=== PATIENT | female | born 1995 | race Caucasian/White ===

== ENCOUNTER 2016-09-05 06:38 | Emergency (ER) | payer OTHER ==
[~2016-09-05] VITALS: Ht 167.6 cm; Wt 73.5 kg
[2016-09-05 06:40] VITALS: Ht 167.6 cm; Wt 73.5 kg
[2016-09-05] MEDS ORDERED: IBUPROFEN 600 MG TAB PO ONE (07:00)
--- NOTE | 2016-09-05 07:53 | RADRPT ---
PROCEDURE: RIGHT ANKLE - 3 VIEWS CLINICAL INDICATION: 20-year-old female with right ankle pain. TECHNIQUE: AP, oblique and lateral views of the right ankle were performed. The images reviewed on a PACS workstation. COMPARISON: None. FINDINGS: The bones of the ankle appear intact, with no evidence of fracture, dislocation, or subluxation. The joint spaces are preserved. The mortise appears intact. Bone mineralization is within normal limits . IMPRESSION: Unremarkable right ankle radiographs. .Sam Clark MD, Date Time Electronically viewed and signed by .Sam Clark MD, on 09/05/2016 07:53 .M/
[2016-09-05] MEDS ORDERED: IBUP-1542 PO (07:57)
--- NOTE | 2016-09-05 08:00 | ERD ---
ER Documentation Chief Complaint Date/Time DATE: 09/05/16 TIME: 07:58 Chief Complaint Complains of right ankle pain cause unknown HPI This 20-year-old female complains of pain in her right Achilles area for last few days. She awoke with the pain. Denies history of trauma and does not play sports. She is no restricted range of motion weakness set mildly due to pain per ROS All systems reviewed and are negative except as per history of present illness. Medications Home Meds Active Scripts Ibuprofen* (Motrin*) 600 Mg Tab, 600 MG PO Q6, #20 TAB Prov:JOCELYN WILSON MD 09/05/16 Reported Medications [None] No Conflict Check 06/05/11 Allergies Allergies: Coded Allergies: No Known Drug Allergy (Verified Allergy, Unknown, 09/29/12) PMhx/Soc History of Surgery: No Anesthesia Reaction: No Hx Neurological Disorder: No Hx Respiratory Disorders: No Hx Cardiac Disorders: No Hx Psychiatric Problems: No Hx Miscellaneous Medical Probl: No Hx Alcohol Use: No Hx Substance Use: No Hx Tobacco Use: No Physical Exam Vitals Vital Signs Date Time Temp Pulse Resp B/P Pulse Ox O2 Delivery O2 Flow Rate FiO2 09/05/16 06:40 97.8 69 20 118/68 100 Physical Exam Const: [] Alert, [id number]. Head: Atraumatic Eyes: Normal Conjunctiva ENT: Normal External Ears, Nose and Mouth. Neck: Full range of motion..~ No meningismus. Resp: Clear to auscultation bilaterally Cardio: Regular rate and rhythm, no murmurs Abd: Soft, non tender, non distended. Normal bowel sounds Skin: No petechiae or rashes Back: No midline or flank tenderness Ext: No cyanosis, or edema. Tenderness at the insertion of the right Achilles tendon without appreciable deficits or weakness no calf swelling or Homans sign. No sign of rupture and negative Caceres's test Neur: Awake and alert Psych: Normal Mood and Affect Results 24 hrs Current Medications Medications (Trade) Dose Ordered Sig/Laura Route PRN Reason Start Time Stop Time Status Last Admin Dose Admin Ibuprofen (Motrin) 600 mg ONCE ONCE PO 09/05/16 07:00 09/05/16 07:01 DC 09/05/16 07:06 Procedures/MDM X-ray right ankle 3V Interpreted by me: Bones: [No fracture] Joints: No dislocation impression have normal right ankle x-ray Patient has signs and symptoms of right Achilles strain or tendinitis without evidence of rupture, septic arthritis, fracture, dislocation, ischemia. She will treated ibuprofen. She was placed in a right lower extremity walker boot and crutches.. We discharged home with orthopedic follow-up instructions return for fevers, redness, new worsening symptoms Departure Diagnosis: Primary Impression: Ankle pain Laterality: right Chronicity: acute Qualified Code: M25.571 - Acute right ankle pain Condition: Stable Patient Instructions: Tendonitis Referrals: MARINA LOPEZ MD [facility] Hours: Tue-Tue 9:00 AM - 5:00 PM Additional Instructions: X-ray read as normal. Likely strain of the Achilles tendon or tendinitis. Apply ice at home. Recheck with orthopedist for further evaluation treatment. Recheck otherwise for new or worsening symptoms such as fever, redness. JOCELYN WILSON MD Sep 05, 2016 07:59
== END 2016-09-05 08:44 | disposition home or self-care (01) ==
LOC: FTE 06:38
DX: M25.571 Pain in right ankle and joints of right foot (principal)
CPT/HCPCS: 73610; Z7502; Z7610